=== PATIENT | female | born 1950 | race Caucasian/White ===

== ENCOUNTER 2020-06-29 15:31 | Inpatient (IN) | payer OTHER, MEDICAID, SELFPAY ==
[~2020-06-29] VITALS: Ht 162.6 cm; Wt 78.5 kg
[~2020-06-29 15:31] MED LIST: BP MEDS PO
--- NOTE | 2020-06-29 15:31 | NUR ---
BIBA TAKEN TO BED 9
[2020-06-29 15:41] VITALS: BP 134/64
[2020-06-29] MEDS ORDERED: cefTRIAXone 1,000 MG in DEXT 5% MINI-BAG PLUS 50 ML IV ONE (15:45)
[2020-06-29] MEDS ORDERED: NACL 0.9% 1,000 ML IV SCH (15:45)
[2020-06-29] MEDS ORDERED: cefTRIAXone 1,000 MG VIAL ONE (15:57)
--- NOTE | 2020-06-29 16:00 | NUR ---
69 YEAR OLD FEMALE BIBA FROM HOME FOR NEAR SYNCOPE EPISODE. PER EMT PT BP WAS 80/60, PATIENT SEEN DIAPHORETIC AND PALE. PT ARRIVED AND PLACED ON MONITOR, BP 127/83, HR 79.PT AOX4, BREATHING EVEN AND UNLABORED, SKIN WARM AND DRY. BED IN LOWEST POSITION, LOCKED, BED RAIL UPX1. PMH - DENIES ALLERGIES - NKA
--- NOTE | 2020-06-29 16:12 | NUR ---
JAXON SWAB SENT TO LAB
[2020-06-29 16:53] LABS: BASOPHILS % (AUTO) 0.2 % (0.0-2.0); EOSINOPHILS # (AUTO) 0.1 K/uL (0-0.4); EOSINOPHILS % (AUTO) 0.6 % (0.0-4.0); HEMATOCRIT 38.7 % (36-48); HEMOGLOBIN 12.7 g/dL (12.0-16.0); LYMPHOCYTES # (AUTO) 2.5 K/uL (2.5-16.5); LYMPHOCYTES % (AUTO) 16.7 % (20.5-51.1); MEAN CORPUSCULAR HEMOGLOBIN 29 pg (27-31); MEAN CORPUSCULAR HGB CONC 33 g/dL (33-37); MEAN CORPUSCULAR VOLUME 89.8 fL (80-94); MONOCYTES # (AUTO) 0.9 K/uL (0.8-1.0); MONOCYTES % (AUTO) 6.4 % (1.7-9.3); NEUTROPHILS # (AUTO) 11.1 K/uL (1.8-7.7); NEUTROPHILS % (AUTO) 76.1 % (42.2-75.2); PLATELET COUNT (AUTO) 333 K/uL (140-450); RED BLOOD CELL COUNT(AUTO) 4.31 MIL/uL (4.20-5.40); WHITE BLOOD COUNT (AUTO) 14.7 K/uL (4.8-10.8)
[2020-06-29 17:31] LABS: APPEARANCE,URINE CLEAR (CLEAR); BILIRUBIN,URINE NEGATIVE (NEGATIVE); BLOOD, URINE TRACE-I (NEGATIVE); COLOR,URINE YELLOW (YELLOW); LEUKOCYTE ESTERASE ,URINE 1+ (NEGATIVE); NITRITE, URINE NEGATIVE (NEGATIVE); UGLUCOSE NEGATIVE (NEGATIVE)
[2020-06-29 17:34] LABS: ALBUMIN 3.7 g/dL (3.4-5.0); ANION GAP 11.7 (8-16); ASPARTATE AMINOTRANSFERASE 19 U/L (15-37); CARBON DIOXIDE 28.8 mmol/L (21-32); CHLORIDE 105 mmol/L (98-107); CREATININE 0.7 mg/dL (0.6-1.3); GLUCOSE 145 mg/dL (74-106); POTASSIUM 3.5 mmol/L (3.5-5.1); SODIUM SERUM 142 mmol/L (136-145); TOTAL BILIRUBIN 0.3 mg/dL (0.0-1.0); UREA NITROGEN, BLOOD 16 mg/dL (7-18)
[2020-06-29] MEDS ORDERED: ENAL-197 PO (17:43)
--- NOTE | 2020-06-29 17:44 | NUR ---
PT ALERT AND AWAKE, BREATHING EVEN AND UNLABORED. NO DISTRESS NOTED. PT ON PHONE
[2020-06-29 18:45] LABS: FINE GRANULAR CASTS,URINE 0-10 /LPF (None Seen)
--- NOTE | 2020-06-29 19:48 | NUR ---
PT OFF TO CT
--- NOTE | 2020-06-29 19:55 | NUR ---
PT RETURN FROM CT
--- NOTE | 2020-06-29 20:10 | NUR ---
RECEIVED CRITICAL LAB VALUE. LACTIC ACID 2.2. DR PERDOMO MADE AWARE. NO ORDERS RECEIVED.
--- NOTE | 2020-06-29 21:45 | NUR ---
REPORT GIVEN TO CASEY RODRIGUEZ VIA PHONE
[2020-06-29 22:05] VITALS: BP 140/82
--- NOTE | 2020-06-29 22:05 | NUR ---
RECEIVED PT / WHEELCHAIR FROM ER , AAOX4 , WALKS TO BED - STEADY GAIT , DENIES ANY WEAKNESS , NID - O2 SAT WNL . DENIES ANY PAIN , DENIES ANY SOB . ADMISSION ASSESSMENT - DONE . PUT PT ON SAFETY / FALL PRECAUTION PROTOCOL - DUE TO EPISODE OF NEARLY SYNCOPE . REMINDS THE PT - HIT THE CALL LIGHT IF SHE NEEDED HELP /ASSISTANCE - FALL RISK - CALL LIGHT WITHIN REACH - SAFETY MEASURES INPLACE . PLAN OF CARE DISCUSSED AND VERBALIZE UNDERSTANDING . WILL CONT. TO MONITOR .
[2020-06-29] MEDS ORDERED: HYDROcodone/APAP 7.5/325 MG 1 TAB PO PRN (22:35)
[2020-06-29] MEDS ORDERED: guaiFENesin DM 200/20 MG-10 ML 10 ML UDC PO PRN (22:35)
[2020-06-29] MEDS ORDERED: ACETAMINOPHEN 325 MG TAB PO PRN (22:35)
[2020-06-29] MEDS ORDERED: POTASSIUM CHLORIDE 10 MEQ TABER PO PRN (22:35)
[2020-06-29] MEDS ORDERED: DOCUSATE SODIUM 100 MG GELCAP PO PRN (22:35)
[2020-06-29] MEDS ORDERED: ONDANSETRON 4 MG/2 ML VIAL IM/IVP PRN (22:35)
[2020-06-29] MEDS ORDERED: ZOLPIDEM 5 MG TAB PO PRN (22:35)
[2020-06-29] MEDS ORDERED: MECLIZINE 25 MG TAB PO PRN (22:40)
[2020-06-29 23:07] LABS: PROTHROMBIN TIME 10.4 secs (10.8-13.4)
[2020-06-29 23:11] LABS: BARBITURATE, URINE NEGATIVE ng/ml (NEG <=200); BENZODIAZEPINE, URINE NEGATIVE ng/mL (NEG <=200); CANNABINOID, URINE NEGATIVE ng/mL (NEG <=50); COCAINE, URINE NEGATIVE ng/mL (NEG <=300); OPIATE, URINE NEGATIVE ng/mL (NEG <=2000); PHENCYCLIDINE SCREEN,URINE NEGATIVE ng/mL (NEG <=25)
[2020-06-29 23:13] LABS: CHOL/HDL RATIO 4.2 (1-4.5); MAGNESIUM 1.7 mg/dL (1.8-2.4); PHOSPHORUS 3.3 mg/dL (2.5-4.9); THYROID STIMULATING HORMONE 3.87 uIU/mL (0.34-3.74)
[2020-06-29] MEDS: NACL 0.9% 1,000 ML IV SCH (23:26)
[2020-06-30 04:00] VITALS: BP 133/85
[2020-06-30 05:28] LABS: ANION GAP 13.5 (8-16); CARBON DIOXIDE 23.9 mmol/L (21-32); CHLORIDE 108 mmol/L (98-107); CREATININE 0.5 mg/dL (0.6-1.3); GLUCOSE 117 mg/dL (74-106); POTASSIUM 3.4 mmol/L (3.5-5.1); SODIUM SERUM 142 mmol/L (136-145); UREA NITROGEN, BLOOD 9 mg/dL (7-18)
[2020-06-30 06:15] LABS: BASOPHILS % (AUTO) 0.4 % (0.0-2.0); EOSINOPHILS % (AUTO) 0.1 % (0.0-4.0); HEMOGLOBIN 12.2 g/dL (12.0-16.0); LYMPHOCYTES # (AUTO) 1.9 K/uL (2.5-16.5); LYMPHOCYTES % (AUTO) 19.6 % (20.5-51.1); MEAN CORPUSCULAR HEMOGLOBIN 30 pg (27-31); MEAN CORPUSCULAR HGB CONC 34 g/dL (33-37); MEAN CORPUSCULAR VOLUME 88.9 fL (80-94); MONOCYTES # (AUTO) 0.6 K/uL (0.8-1.0); MONOCYTES % (AUTO) 6.5 % (1.7-9.3); NEUTROPHILS # (AUTO) 7.3 K/uL (1.8-7.7); NEUTROPHILS % (AUTO) 73.4 % (42.2-75.2); PLATELET COUNT (AUTO) 345 K/uL (140-450); RED BLOOD CELL COUNT(AUTO) 4.05 MIL/uL (4.20-5.40); RED CELL DISTRIBUTION WIDTH 13.4 % (11.6-13.7); WHITE BLOOD COUNT (AUTO) 9.9 K/uL (4.8-10.8)
[2020-06-30] MEDS: NACL 0.9% 1,000 ML IV SCH ×2 (06:40→15:06)
--- NOTE | 2020-06-30 07:20 | NUR ---
RECEIVED REPORT FROM NIGHT NURSE PATIENT IS AAOX4, ROOM AIR, AMBULATORY WITH ASSIST, SKIN INTACT, IV INTACT ON RIGHT HAND PT FOR OBSERVATION ONLY CHEST XRAY DONE NEGATIVE RESULTS, CT HEAD NEGATIVE AND FOR US CAROTID BILATERAL TO R/O CAROTID STENOSIS. SAFETY MEASURES IN PLACE AND CALL LIGHT WITHIN REACH. WILL CONTINUE TO MONITOR.
[2020-06-30 08:00] VITALS: BP 142/72
--- NOTE | 2020-06-30 08:50 | NUR ---
PATIENT HAS BEEN SCREENED AND CATEGORIZED LOW NUTRITION RISK. PATIENT WILL BE SEEN WITHIN 7 DAYS OF ADMISSION. 07/06/[address]
[2020-06-30] MEDS: PANTOPRAZOLE 40 MG TABEC PO SCH (09:04)
[2020-06-30] MEDS: ENALAPRIL 10 MG TAB PO SCH (09:05)
[2020-06-30] MEDS: ATORVASTATIN 20 MG TAB PO SCH (09:05)
--- NOTE | 2020-06-30 09:09 | NUR ---
MEDICATION DUE GIVEN CHECK VITAL SIGNS PRIOR TO MEDICATION BP 142/72 NC 89 PATIENT IS STABLE NO DISTRESS NOTED.
--- NOTE | 2020-06-30 10:31 | NUR ---
DC PLANNIN YRS OLD FEMALE PATIENT WAS ADMITTED FROM HOME WITH A DX OF NEAR SYNCOPE AND UTI. PT HAS A HX OF HTN, AND DM. CXR AND CT HEAD NEGATIVE. UA 1+ , RAPID COVID TEST NEGATIVE. ADMINISTERED IVF, IV ABX ROCEPHIN AND CONTINUED HOME MEDS. DC PLAN TO GO HOME WHEN STABLE. CM TO FOLLOW called [facility], [facility] [phone] ext [phone] spoke with bhupendra anderson updated pt's clinical and the inpt status. per monica pt can still be on observation until tomorrow and if she needs to stay after tomorrow will can change it inpatient home ever she requested the clinicals to be faxed to [phone]. she provide the obs auth [id number] faxed clinicals and cm to follow. Addendum: 07/01/20 at 1051 by Claire Hendrix RN DC PLANNING: NICKOLAS SETH SPOKE WITH BERNIE AT [phone] APPROVED THE INPATIENT STATUS.
--- NOTE | 2020-06-30 10:34 | NUR ---
SOCIAL WORK NOTE: Patient's Orientation Unable To Assess Information Provided By AVIS VELOZ - SON Comments SW WAS UNABLE TO MEET PATIENT AT BEDSIDE. SW COMPLETED ASSESSMENT WITH PATIENT'S SON. Program Rep, Realtionship and Phone Number AVIS VELOZ SON [phone] ILLLY VELOZ SON [phone] [facility] Power of Fire Extinguisher Technician No Does Patient Have a POLST No Identifying Problems No Social Work Triggers Is A Social Work Consult Needed No Mandate Report Filed No Explanation Of Identifying Problems PATIENT IS A 69-YEAR-OLD FEMALE ADMITTED FOR NEAR SYNCOPE. PATIENT HAS PMHX OF DIABETES AND HYPERTENSION. PATIENT'S SON REPORTED NO HX OF MENTAL HEALTH OR SUBSTANCE ABUSE. Admitted From Home Pre-Admission Level Of Functioning Status Independent/Ambulatory Prior Resources/Services Used In Last 12 Months No Prior Resources Used Prior DME No Prior DME Used Living Situation Apartment Lives With Family Patient Had Caregiver No Home Support No Caregiver Issues Financial Issues No Known Financial Issue Referral To The Financial Counselor Needed No Factors/Needs No D/C Needs Identified Pt/Rep Participated In Discharge Plan Yes Patient/Family Agress With Discharge Plan Yes Discharge Plan Comments TENTATIVE DISCHARGE PLAN IS FOR PATIENT TO RETURN HOME. DC Plan Status Initiated
[2020-06-30 12:00] VITALS: BP 116/55
[2020-06-30] MEDS: MAGNESIUM OXIDE 400 MG TAB PO SCH (12:58)
--- NOTE | 2020-06-30 12:59 | NUR ---
MEDICATION DUE GIVEN ABLE TO TOLERATE WELL.
--- NOTE | 2020-06-30 14:30 | NUR ---
MADE ROUNDS PT IS SLEEPING NO DISTRESS NOTED
--- NOTE | 2020-06-30 15:08 | NUR ---
CHANGED IV FLUIDS SODIUM CHLORIDE 0.9% 1000 ML AT 120 MLS/HR.
[2020-06-30 16:00] VITALS: BP 131/66
--- NOTE | 2020-06-30 17:33 | NUR ---
MEDICATION DUE GIVEN INFUSING WELL PT IS STABLE AND NO DISTRESS NOTED.
--- NOTE | 2020-06-30 19:09 | NUR ---
ENDORSED TO NIGHT NURSE FOR CONTINUITY OF CARE. PT IS STABLE.
--- NOTE | 2020-06-30 19:10 | NUR ---
RECEIVED BEDSIDE REPORT FROM DAY RN. PATIENT IS AAOX4 BELARUSIAN SPEAKING ONLY. PT RESTING COMFORTABLY IN BED TALKING ON CELLPHONE NO S/S OF DISTRESS, RESPIRATIONS ARE EQUAL AND UNLABORED ON ROOM AIR. LUNG SOUNDS ARE CLEAR. PT AMBULATORY WITH ASSIST, SKIN INTACT, IV INTACT ON RIGHT HAND 22G INFUSING IVF PER ORDERS. SAFETY MEASURES IN PLACE AND CALL LIGHT WITHIN REACH. POC DISCUSSED WITH PT. PT VERBALIZED UNDERSTANDING AND AGREE WITH POC. WILL CONTINUE TO MONITOR.
[2020-06-30 20:00] VITALS: BP 130/68
--- NOTE | 2020-06-30 21:00 | NUR ---
ASSISTED PT TO RESTROOM PT WITH STEADY GAIT DENIES ANY LIGHT HEAD OR DIZZINESS. ALL NEEDS MET. WILL CONTINUE TO MONITOR.
--- NOTE | 2020-07-01 | NUR ---
ROUNDS MADE. PT OBSERVED LAYING IN BED APPEARS TO BE ASLEEP. CHEST RISE AND FALL NOTED. CALL LIGHT IS WITHIN REACH. WILL CONTINUE TO MONITOR.
[2020-07-01] MEDS: NACL 0.9% 1,000 ML IV SCH ×2 (01:59→07:58)
--- NOTE | 2020-07-01 01:59 | NUR ---
ROUNDS MADE. PT APPEARS TO BE ASLEEP. CHEST RISE AND FALL NOTED. CALL LIGHT IS WITHIN REACH.
[2020-07-01 04:00] VITALS: BP 136/64
--- NOTE | 2020-07-01 04:05 | NUR ---
VITAL SIGNS ARE WITHIN NORMAL LIMITS. ALL SAFETY MEASURES ARE IN PLACE. WILL CONTINUE TO MONITOR.
[2020-07-01 05:35] LABS: HEMATOCRIT 34.5 % (36-48); HEMOGLOBIN 11.6 g/dL (12.0-16.0); MEAN CORPUSCULAR HEMOGLOBIN 30 pg (27-31); MEAN CORPUSCULAR HGB CONC 34 g/dL (33-37); MEAN CORPUSCULAR VOLUME 89.9 fL (80-94); PLATELET COUNT (AUTO) 299 K/uL (140-450); RED BLOOD CELL COUNT(AUTO) 3.84 MIL/uL (4.20-5.40); WHITE BLOOD COUNT (AUTO) 7.2 K/uL (4.8-10.8)
[2020-07-01 05:36] LABS: ANION GAP 11.9 (8-16); CARBON DIOXIDE 26.9 mmol/L (21-32); CHLORIDE 109 mmol/L (98-107); CREATININE 0.5 mg/dL (0.6-1.3); GLUCOSE 98 mg/dL (74-106); POTASSIUM 3.8 mmol/L (3.5-5.1); SODIUM SERUM 144 mmol/L (136-145); UREA NITROGEN, BLOOD 10 mg/dL (7-18)
[2020-07-01 07:08] LABS: T4 (THYROXINE) 9.1 ug/dL (4.5-12.0)
--- NOTE | 2020-07-01 07:10 | NUR ---
REC'D REPORT FROM BUNG DROPPER NURSE, PT A/Ox4 PORTUGUESE SPEAKING, NO C/O LIGHTHEADEDNESS. DENIES PAIN AT THIS TIME. R. HAND 22 G INFUSING NS @120, IV SITE DRY, CLEAN, NO SIGN OF PHLEBITIS. CALL LIGHT WITHIN REACH.
[2020-07-01 07:27] LABS: EOSINOPHILS % (MANUAL) 4 % (0-4)
--- NOTE | 2020-07-01 07:27 | NUR ---
GAVE BEDSIDE REPORT TO DAY RN. PT ENDORSED IN STABLE CONDITION.
[2020-07-01 07:29] LABS: LYMPHOCYTES % (MANUAL) 25 % (20-46); MONOCYTES % (MANUAL) 10 % (5-12)
[2020-07-01 08:00] VITALS: BP 155/79
[2020-07-01] MEDS: ATORVASTATIN 20 MG TAB PO SCH (09:44)
[2020-07-01] MEDS: MAGNESIUM OXIDE 400 MG TAB PO SCH (09:45)
[2020-07-01] MEDS: ENALAPRIL 10 MG TAB PO SCH (09:45)
[2020-07-01] MEDS: PANTOPRAZOLE 40 MG TABEC PO SCH (09:45)
--- NOTE | 2020-07-01 09:52 | NUR ---
ADMINISTERED MEDICATIONS PER MD ORDER, MOA AND SIDE EFFECTS DISCUSSED WITH PT WHO VERBALIZED UNDERSTANDING, PT TOLERATED PROCEDURE WELL, EDUCATED ON IMPORTANCE OF ADHERING TO CHOLESTEROL MEDICATION REGIMEN D/T PT'S CARDIAC HISTORY, CALL LIGHT WITHIN REACH.
[2020-07-01] MEDS ORDERED: LACT1CAP59 PO (10:02)
[2020-07-01] MEDS ORDERED: SULF-280 PO (10:02)
[2020-07-01 11:27] VITALS: BP 155/79
--- NOTE | 2020-07-01 12:15 | NUR ---
DISCHARGED VIA WHEELCHAIR TO PRIVATE VEHICLE IN STABLE CONDITION. DENIES PAIN AT THIS TIME. ID BAND REMOVED ,IV CATHETER REMOVED, INTACT. PT TOLERATED PROCEDURE WELL. DISCHARGE PACKET GIVEN AND REVIEWED WITH PT. IN [place]UD[place], NEW PRESCRIBED MEDICATIONS REVIEWED DISCUSSED MOA AND SIDE EFFECTS PT VERBALIZED UNDERSTANDING. PT TO CALL PCP FOR APPOINTMENT WITHIN 1 WEEK.
== END 2020-07-01 12:05 | disposition home or self-care (01) | DRG 871 ==
LOC: MED 15:31 → MTU 18:58 → OBSVTOIN 06-30 10:27
PROVIDERS: ADMIT Family Medicine; ATTEND Family Medicine
DX: A41.9 Sepsis, unspecified organism (principal); G93.41 Metabolic encephalopathy; N39.0 Urinary tract infection, site not specified; I10 Essential (primary) hypertension; E11.9 Type 2 diabetes mellitus without complications; E78.2 Mixed hyperlipidemia; E87.6 Hypokalemia; E03.9 Hypothyroidism, unspecified; E86.0 Dehydration; E83.42 Hypomagnesemia; Z20.822 Contact with and (suspected) exposure to COVID-19; Z90.710 Acquired absence of both cervix and uterus
CPT/HCPCS: 36415; 70450; 71045; 80048; 80053; 80305; 81001; 82150; 82948; 83036; 83605; 83690; 83735; 83880; 84100; 84436; 84439; 84443; 84479; 84484; 85025; 85610; 85730; 87040; 87081; 87086; 93005; 93880; 96361; 96374; 97530; 99285; G0378; J0696; J7030; J7060